=== PATIENT | male | born 1995 | race Caucasian/White ===

== ENCOUNTER 2016-10-01 00:25 | Observation (INO) | payer OTHER ==
[2016-10-01] VITALS (7 sets, daily range): BP systolic 113–133; BP diastolic 51–77
[~2016-10-01] VITALS: Ht 190.5 cm; Wt 77.6 kg
--- NOTE | ~2016-10-01 | O ---
[facility] [place] [address] OPERATIVE REPORT Name: JOSE WILL MELYSSA Room #: 533-P [facility] Precious Omer#: [id number] Admission: 10/01/16 Attend Phys: Curtis Solitario MD, F Discharge: 10/01/16 Date of : [birth year] Report #: [id number] THIS REPORT FOR: //name// CC: [facility] physician/PCP Curtis Solitario DATE OF SERVICE: 10/01/2016 PREOPERATIVE DIAGNOSIS: Acute appendicitis. POSTOPERATIVE DIAGNOSIS: Acute appendicitis, nonperforated. PROCEDURE: Laparoscopic appendectomy. SURGEON: Curtis Solitario MD COMPOUNDER: Yesenia Qiu APRN. INDICATIONS: A 21-year-old male with less than 24 hours of abdominal pain, somewhat localized to right lower quadrant. CT scan was consistent with early appendicitis. The patient has a leukocytosis. OPERATIVE PROCEDURE: The patient had been initiated on IV antibiotics. He had discussion of the procedure, benefits and risks. He gave informed consent to proceed. He was brought to the operating room suite and had satisfactory induction of general endotracheal anesthesia. The patient's entire abdomen was prepped and draped in usual sterile procedure with DuraPrep solution. The patient had voided preoperatively. After sterile draping was completed, an appropriate timeout was then performed. Open cutdown at the infraumbilical position was performed. 0.5% plain Naropin was utilized and injected at all trocar sites, 30 mL was utilized during the procedure. A 12 mm Kwesi trocar was introduced under direct vision. The balloon was inflated. Pneumoperitoneum was established. A left lower quadrant and lower midline 5 mm trocar ports were then placed under direct vision. The appendix was in an inferior cecal position. The Sonicision was utilized to free up the peritoneum to the inferior aspect of the appendix, which was held in place by the peritoneum. After this was completed, a window was made in the mesoappendix. The mesoappendix was crossclamped, ligated and divided with the BOB laparoscopic endoscopic 45 mm white load. The base of the appendix was then crossclamped, ligated and divided with the BOB laparoscopic endoscopic white load device. The transected appendix was placed into a bag and removed from the peritoneal cavity. An 0 PDS [id number] was then placed to the muscle layer under direct vision at the infraumbilical port site. Final inspection and irrigation of the appendiceal site was then performed. The staple lines were dry. After evacuation of all irrigating contents, the pneumoperitoneum was deflated. Photographs had been taken and made part of the medical record. The trocars were then removed under [address] [address] OPERATIVE REPORT Name: JOSE WILL Room #: 533-P DELIA Lang M.RSolitario#: [id number] Admission: 10/01/16 Attend Phys: Curtis Solitario MD, F Discharge: 10/01/16 Date of : [birth year] Report #: [id number] direct vision. The 0 PDS suture was ligated in place. Skin margins were approximated with subcuticular 4-0 Monocryl followed by Dermabond placement. Estimated blood loss was less than 10 mL. The patient tolerated the procedure well and returned to recovery room in stable and satisfactory condition. <ELECTRONICALLY SIGNED> By: Curtis Solitario MD, FACS 10/03/16 0959 [id number] 1821 Curtis Solitario MD, FACS /nt
--- NOTE | ~2016-10-01 | H ---
[facility] [place] [address] HISTORY AND PHYSICAL Name: JOSE WILL Room #: 533-P [facility].Solitario#: [id number] Admission: 10/01/16 Attend Phys: Curtis Solitario MD, F Discharge: Date of : [birth year] Report #: [id number] THIS REPORT FOR: //name// CC: [facility] physician/PCP Curtis Solitario DATE OF SERVICE: 10/01/2016 CHIEF COMPLAINT: This 21-year-old genotypic and phenotypic male has presented to the emergency department with a chief complaint of lower abdominal pain. HISTORY OF PRESENT ILLNESS: The patient began to experience abdominal pain within the last 12-24 hours. The pain has worsened. The patient has anorexia. He denies vomiting. Pain has intensified and localized to the right lower quadrant. A CT scan is consistent with acute onset of appendicitis. PAST MEDICAL HISTORY: Surgical illnesses none. Medical illnesses, seasonal allergies. MEDICATIONS: Currently, Zyrtec; naproxen; was given prednisone, but has not taken the prednisone. ALLERGIES: No known drug allergies. SOCIAL HISTORY: The patient is transgender, prefers to be known as Yesenia. A [id number] history of cigarette smoking. Denies illegal drugs, denies IV drug use. REVIEW OF SYSTEMS: A 10-point review of systems essentially noncontributory, except for recent change in gastrointestinal function. PHYSICAL EXAMINATION: GENERAL: Reveals the patient resting comfortably in bed, sleeping. IV is infusing. The patient has some mild abdominal tenderness when the patient rolls to the supine position. VITAL SIGNS: Afebrile. Vital signs stable. HEENT: No scleral icterus. Pupils are equal. NECK: Supple. No adenopathy. LUNGS: Clear at the bases bilaterally. CARDIOVASCULAR: Regular rate and rhythm. ABDOMEN: Scaphoid. Positive Rovsing's sign. Tenderness in the right lower quadrant with guarding and rebound. RECTAL EXAMINATION: Not performed. NEUROLOGIC: Oriented times 3. Bilateral motor symmetry. GENITALIA: Genotypic and phenotypic male. [facility] [place] [address] HISTORY AND PHYSICAL Name: JOSE WILL MELYSSA Room #: 533-P [facility] Negra#: [id number] Admission: 10/01/16 Attend Phys: Curtis Solitario MD, F Discharge: Date of : [birth year] Report #: [id number] LABORATORY DATA: Review of the laboratory demonstrates white blood cell count at 20,000. CT is consistent with appendicitis. DIAGNOSTIC IMPRESSION: Early-onset acute appendicitis. PLAN: IV antibiotics, laparoscopic appendectomy today. The procedure, benefits and risks have been discussed with the patient, who is in agreement to proceed. <ELECTRONICALLY SIGNED> By: Curtis Solitario MD, FACS 10/01/16 1414 0911 1022 Crutis Solitario MD, FACS /nt
--- NOTE | ~2016-10-01 | S ---
[facility] [place] [address] SURGICAL PATH RPT PROCEDURE Name: JOSE HANCOCK MELYSSA Room #: 533-P DELIA Omer#: [id number] Admission: 10/01/16 Date of : [birth year] Discharge: 10/01/16 Report #: [id number] Path Case #: [id number] PATHOLOGY REPORT COLLECTION DATE: 10/01/2016 RECEIVED DATE: 10/01/2016 SUBMITTING PHYS: Dr. Curtis Solitario OTHER PHYS: SPECIMEN(S) RECEIVED: A.Appendix * * * * * * * * * * * * FINAL DIAGNOSIS: Appendix, appendectomy: - Marked acute appendicitis, along with marked serositis. PATHOLOGIST: Iqra Altamirano M.D. REPORT ELECTRONICALLY SIGNED BY: Iqra Altamirano M.D. DATE/TIME: 10/03/2016 12:42 * * * * * * * * * * * * GROSS PATHOLOGY: Received in formalin labeled "Jose Hancock appendix," is an appendix measuring 5.6 cm in length and 0.8 cm in diameter with a moderate amount of attached mesoappendix. The serosal surface is pink-alcala in appearance with moderate vasculature. Sectioning reveals a pinpoint to slightly patent lumen. Bone Char Kiln Operator sections are submitted in cassette A1. (CAA; 10/02/2016) CLINICAL HISTORY: Acute appendicitis INITIAL CPT CODE(S): A; 16329 Professional services performed by [facility] at [facility] [address], [place] [address] Technical services performed by [facility] at [address] [place] [address], [facility] [address] [place] [address]. [facility] [address] [place] [address] SURGICAL PATH RPT PROCEDURE Name: JOSE HANCOCK Room #: 533-P DELIA Omer#: [id number] Admission: 10/01/16 Date of : [birth year] Discharge: 10/01/16 Report #: [id number] Path Case #: [id number] [address] PHONE: [phone] DIRECTOR: Dewayne Lanier M.D. * * * END OF REPORT * * *
[~2016-10-01 00:25] MED LIST: ALEVE220 MG; NAPROSYN500 MG PO; PREDNISONE 20 M20 MG PO; XANAX 0.25 MG0.25 MG PO; ZYRTEC10 MG PO
[2016-10-01 01:31] LABS: HEMATOCRIT 49.7 % (42.0-52.0); HEMOGLOBIN 17.1 gm/dL (14.0-18.0); MCH 30.7 pg (26.0-34.0); MCHC 34.4 g/dL (28.0-37.0); MCV 89.2 fL (80.0-100.0); PLATELET COUNT 205 thou/uL (150-400); RBC 5.58 mil/uL (4.50-6.00); RDW 13.4 % (10.5-14.5); WBC 20.8 thou/uL (4.0-11.0)
[2016-10-01 01:35] LABS: MANUAL DIFF YES
[2016-10-01 01:40] LABS: CALCIUM 9.3 mg/dL (8.5-10.1); CREATININE 1.2 mg/dL (0.7-1.3); POTASSIUM 3.7 mmol/L (3.5-5.1)
[2016-10-01 01:41] LABS: URINE BILIRUBIN NEGATIVE (Negative); URINE BLOOD TRACE (Negative); URINE COLOR YELLOW; URINE GLUCOSE-RANDOM* NEGATIVE (Negative); URINE KETONES NEGATIVE (Negative); URINE LEUKOCYTES-REFLEX NEGATIVE (Negative); URINE PROTEIN (DIPSTICK) NEGATIVE (Negative); URINE UROBILINOGEN 0.2 E.U./dl (0.2-1.0)
[2016-10-01 01:44] LABS: ALBUMIN 4.8 g/dL (3.4-5.0); TOTAL BILIRUBIN 0.5 mg/dL (<0.1-1.0); TOTAL PROTEIN 8.3 g/dL (6.4-8.2)
[2016-10-01 01:53] LABS: ABSOLUTE NEUTROPHILS 15.8 thou/uL (1.4-8.2); LARGE PLATELETS FEW; TOTAL CELL COUNT 100
== END 2016-10-01 19:30 | disposition home or self-care (01) ==
LOC: ER 00:25 → EROBS 03:05 → 5S 04:25
PROVIDERS: Emergency Medicine
DX: K35.80 Unspecified acute appendicitis (principal); J30.9 Allergic rhinitis, unspecified; F41.9 Anxiety disorder, unspecified; R07.9 Chest pain, unspecified; H69.90 Unspecified Eustachian tube disorder, unspecified ear
CPT/HCPCS: 50010; 50101; 50249; 50411; 50555; 50739; 50740; 50944; 50962; 51489; 51975; 52265; 53307; 54022; 56525; 56526; 56531; 62110; 62900; 70005

== ENCOUNTER 2016-11-16 20:35 | Emergency (ER) | payer OTHER ==
[~2016-11-16] VITALS: Ht 190.5 cm; Wt 74.8 kg
== END 2016-11-16 23:11 | disposition home or self-care (01) ==
LOC: ER 20:35
DX: S91.302A Unspecified open wound, left foot, initial encounter (principal); F41.9 Anxiety disorder, unspecified; F43.10 Post-traumatic stress disorder, unspecified; F90.9 Attention-deficit hyperactivity disorder, unspecified type; F17.210 Nicotine dependence, cigarettes, uncomplicated; X58.XXXA Exposure to other specified factors, initial encounter; Y93.01 Activity, walking, marching and hiking; Y92.89 Other specified places as the place of occurrence of the external cause; Y99.8 Other external cause status

== ENCOUNTER 2017-08-20 20:43 | Emergency (ER) | payer OTHER ==
[~2017-08-20] VITALS: Ht 193 cm; Wt 65.8 kg
[2017-08-20 21:20] LABS: URINE BLOOD NEGATIVE (Negative); URINE CLARITY CLEAR; URINE COLOR YELLOW; URINE GLUCOSE-RANDOM* NEGATIVE (Negative); URINE KETONES 1+ (Negative); URINE LEUKOCYTES-REFLEX NEGATIVE (Negative); URINE NITRITE-REFLEX NEGATIVE (Negative); URINE PROTEIN (DIPSTICK) 2+ (Negative); URINE SPECIFIC GRAVITY >= 1.030 (1.005-1.035); URINE UROBILINOGEN 0.2 E.U./dl (0.2-1.0)
[2017-08-20 21:21] LABS: ICTOTEST (BILI CONFIRMATORY) Negative (Negative); URINE BILIRUBIN NEGATIVE (Negative)
[2017-08-20 21:29] LABS: MUCUS >6 Heavy strn/LPF (None Seen); SQUAMOUS 4-10 Moderate /LPF (0-3)
[2017-08-20 21:30] LABS: CASTS None Seen /LPF (None Seen); URINE RBC 0-2 Rare /HPF (0-2); URINE WBC-REFLEX 0-5 Rare /HPF (0-5)
[2017-08-20 21:31] LABS: BACTERIA-REFLEX 1-9 Few /HPF (None Seen); CRYSTALS None Seen /LPF (None Seen)
[2017-08-20 21:34] LABS: ABSOLUTE NEUTROPHILS 3.6 thou/uL (1.4-8.2); BASOPHILS 0.7 % (0.0-2.0); EOSINOPHILS 3.4 % (0.0-3.0); HEMATOCRIT 48.4 % (42.0-52.0); HEMOGLOBIN 16.7 gm/dL (14.0-18.0); LYMPHOCYTES 28.8 % (24.0-44.0); MCH 30.6 pg (26.0-34.0); MCHC 34.6 g/dL (28.0-37.0); MCV 88.4 fL (80.0-100.0); MONOCYTES 9.3 % (1.0-8.0); PLATELET COUNT 187 thou/uL (150-400); POLYS 57.8 % (36.0-66.0); RBC 5.47 mil/uL (4.50-6.00); WBC 6.2 thou/uL (4.0-11.0)
[2017-08-20 21:46] LABS: CALCIUM 9.5 mg/dL (8.5-10.1); CREATININE 1.3 mg/dL (0.7-1.3); POTASSIUM 3.7 mmol/L (3.5-5.1)
[2017-08-20 21:52] LABS: TOTAL BILIRUBIN 0.8 mg/dL (<0.1-1.0); TOTAL PROTEIN 8.6 g/dL (6.4-8.2)
[2017-08-20] MEDS ORDERED: KEFLEX500 M1 PO (21:54)
[2017-08-25] MEDS ORDERED: KEFLEX500 M1 PO (19:37)
[2017-08-25] MEDS ORDERED: CARAFATE 1 GM TA1 G1 PO (21:41)
[2017-08-25] MEDS ORDERED: PEPCID20 MG PO (21:41)
== END 2017-08-20 22:23 | disposition home or self-care (01) ==
LOC: ER 20:43
PROVIDERS: Emergency Medicine
DX: N39.0 Urinary tract infection, site not specified (principal); R10.10 Upper abdominal pain, unspecified; F90.9 Attention-deficit hyperactivity disorder, unspecified type; F17.210 Nicotine dependence, cigarettes, uncomplicated

== ENCOUNTER 2017-08-28 19:24 | Emergency (ER) | payer OTHER ==
[~2017-08-28] VITALS: Ht 193 cm; Wt 59.9 kg
[~2017-08-28 19:24] MED LIST changes: +CARAFATE 1 GM TA1 G1 PO; +KEFLEX500 M1 PO; +PEPCID20 MG PO
[2017-08-28 20:15] LABS: HEMATOCRIT 44.9 % (42.0-52.0); HEMOGLOBIN 15.4 gm/dL (14.0-18.0); MCH 30.7 pg (26.0-34.0); MCHC 34.2 g/dL (28.0-37.0); MCV 89.7 fL (80.0-100.0); RBC 5.01 mil/uL (4.50-6.00); RDW 12.9 % (10.5-14.5); WBC 5.4 thou/uL (4.0-11.0)
[2017-08-28 20:24] LABS: CALCIUM 9.4 mg/dL (8.5-10.1); CREATININE 1.2 mg/dL (0.7-1.3); POTASSIUM 3.6 mmol/L (3.5-5.1)
== END 2017-08-28 21:00 | disposition home or self-care (01) ==
LOC: ER 19:24
PROVIDERS: Emergency Medicine
DX: R63.4 Abnormal weight loss (principal)

== ENCOUNTER 2018-01-28 22:57 | Emergency (ER) | payer OTHER ==
[~2018-01-28] VITALS: Ht 193 cm; Wt 59.0 kg
[~2018-01-28 22:57] MED LIST changes: +PHENERGAN 25 MG25 M1 PO
== END 2018-01-29 00:42 | disposition home or self-care (01) ==
LOC: ER 22:57
DX: Z77.028 Contact with and (suspected) exposure to other hazardous aromatic compounds (principal); F41.9 Anxiety disorder, unspecified; F43.10 Post-traumatic stress disorder, unspecified; F90.9 Attention-deficit hyperactivity disorder, unspecified type; F17.210 Nicotine dependence, cigarettes, uncomplicated

== ENCOUNTER 2019-08-08 03:58 | Emergency (ER) | payer OTHER ==
[~2019-08-08] VITALS: Ht 193 cm; Wt 59.1 kg
[2019-08-08 04:40] VITALS: BP 153/85
== END 2019-08-08 04:46 | disposition home or self-care (01) ==
LOC: ER 03:58
DX: K08.89 Other specified disorders of teeth and supporting structures (principal); F41.9 Anxiety disorder, unspecified; F90.9 Attention-deficit hyperactivity disorder, unspecified type; F17.210 Nicotine dependence, cigarettes, uncomplicated